=== PATIENT | female | born 1980 | race Caucasian/White ===

== ENCOUNTER 2016-09-17 22:20 | Emergency (ER) | payer BC, MEDICAID, SELFPAY ==
[~2016-09-17] VITALS: Ht 157.5 cm; Wt 64.6 kg
[2016-09-17] MEDS ORDERED: BIRTH CONTROL (22:38)
[2016-09-17] MEDS ORDERED: HTN MED (22:39)
[2016-09-17 22:56] LABS: HEMOGLOBIN 15.5 g/dL (11.7-16.4)
[2016-09-17 23:09] LABS: BLOOD UREA NITROGEN 19 mg/dL (7-18)
[2016-09-17 23:15] LABS: ICTOTEST NEGATIVE
[2016-09-18 01:37] VITALS: BP 116/75
== END 2016-09-18 01:45 | disposition home or self-care (01) ==
LOC: ED 23:35
DX: N20.1 Calculus of ureter (principal); R31.9 Hematuria, unspecified; I10 Essential (primary) hypertension
CPT/HCPCS: 36415; 74176; 80048; 81001; 82040; 84703; 85025; 87086

== ENCOUNTER 2017-05-11 20:08 | Emergency (ER) | payer BC ==
[~2017-05-11] VITALS: Ht 157.5 cm; Wt 73.5 kg
[~2017-05-11 20:08] MED LIST: BIRTH CONTROL; HTN MED
[2017-05-11 20:12] VITALS: BP 118/78
[2017-05-11] MEDS ORDERED: ONDANSETRON ODT 8 MG ONE (20:41)
== END 2017-05-11 20:59 ==
LOC: ED 20:47
DX: S93.491A Sprain of other ligament of right ankle, initial encounter (principal); I10 Essential (primary) hypertension; X50.1XXA Overexertion from prolonged static or awkward postures, initial encounter; Y93.89 Activity, other specified; Y92.009 Unspecified place in unspecified non-institutional (private) residence as the place of occurrence of the external cause; Y99.8 Other external cause status
CPT/HCPCS: 99284

== ENCOUNTER 2018-08-04 08:13 | Emergency (ER) | payer BC ==
[~2018-08-04] VITALS: Ht 157.5 cm; Wt 79.1 kg
[2018-08-04] MEDS ORDERED: ONDANSETRON 2MG/ML, 2ML ONE (08:47)
[2018-08-04] MEDS ORDERED: MORPHINE SULFATE 4 MG/ML, 1ML ONE (08:47)
[2018-08-04] MEDS ORDERED: SODIUM CHLORIDE FLUSH 10ML SYR IVF ONE (09:00)
[2018-08-04] MEDS ORDERED: MORPHINE SULFATE 4 MG/ML, 1ML IVPush PRN (09:00)
[2018-08-04] MEDS ORDERED: ONDANSETRON 2MG/ML, 2ML IVPush ONE (09:00)
[2018-08-04] MEDS ORDERED: LOSA1TAB19 PO (09:02)
[2018-08-04] MEDS ORDERED: CETI10CA PO (09:02)
[2018-08-04 09:03] LABS: BASOPHILS # (AUTO) 0.03 x10^3/uL (0-0.1); BASOPHILS % (AUTO) 0 % (0-1); EOSINOPHILS # (AUTO) 0.13 x10^3/uL (0-0.4); EOSINOPHILS % (AUTO) 1 % (1-7); LYMPHOCYTES # (AUTO) 2.01 x10^3/uL (1-3.4); LYMPHOCYTES % (AUTO) 18 % (22-44); MD NO; MEAN CORPUSCULAR HGB CONC 32.9 g/dL (32.4-35.8); MEAN PLATELET VOLUME 7.9 fL (7.4-10.4); MONOCYTES # (AUTO) 0.65 x10^3/uL (0.2-0.8); MONOCYTES % (AUTO) 6 % (2-9); NEUTROPHILS # (AUTO) 8.17 x10^3/uL (1.8-6.8); NEUTROPHILS % (AUTO) 74 % (42-75); PLATELET COUNT 388 x10^3/uL (130-400); RED BLOOD COUNT 4.92 x10^6/uL (3.82-5.3); RED CELL DISTRIBUTION WIDTH 13.5 % (9.6-15.2)
[2018-08-04] MEDS ORDERED: KETOROLAC 30 MG/1 ML ONE (09:05)
[2018-08-04 09:15] LABS: ALANINE AMINOTRANSFERASE 57 U/L (12-78); ALBUMIN 3.6 g/dL (3.4-5.0); ANION GAP 9 mmol/L (5-15); CALCIUM 9.2 mg/dL (8.5-10.1); CHLORIDE 107 mmol/L (98-107)
[2018-08-04 09:18] LABS: ALKALINE PHOSPHATASE 69 U/L (45-117); BILIRUBIN,TOTAL 0.5 mg/dL (0.2-1.0); CREATININE 0.98 mg/dL (0.55-1.02); TOTAL PROTEIN 7.8 g/dL (6.4-8.2)
[2018-08-04 09:30] LABS: MICROSCOPIC INDICATED
[2018-08-04] MEDS ORDERED: KETOROLAC 30 MG/1 ML IVPush ONE (09:30)
[2018-08-04 09:31] LABS: CULTURE INDICATED? YES
--- NOTE | 2018-08-04 10:01 | NUR ---
PT RETURNS FROM CT. STATES PAIN DOWN TO 5/10 POST MEDS. DENIES NAUSEA. PROVIDER IN TO DISCUSS RESULTS.
--- NOTE | 2018-08-04 10:10 | NUR ---
PT CLEARED FOR DISCHARGE. IV DC'D, PT ALLOWED TO DRESS WHILE AWAITING D/C INSTRUCTIONS.
--- NOTE | 2018-08-04 10:36 | NUR ---
FIRST CONTACT. PT. WAS GIVEN DISCHARGE INSTRUCTIONS AND SCRIPTS WITH UNDERSTANDING VERBALIZED ALONG WITH WILLINGNESS TO COMPLY. PT. WAS AMBULATORY TO THE DISCHARGE DESK.
[2018-08-04 10:37] VITALS: BP 122/82
== END 2018-08-04 10:40 | disposition home or self-care (01) ==
LOC: ED 09:05
DX: K80.20 Calculus of gallbladder without cholecystitis without obstruction (principal); N13.2 Hydronephrosis with renal and ureteral calculous obstruction; I10 Essential (primary) hypertension; Z87.42 Personal history of other diseases of the female genital tract; Z98.890 Other specified postprocedural states
CPT/HCPCS: 36415; 74176; 80053; 81001; 85025; 87086; 96374; 96375; 99284; J1885; J2405

== ENCOUNTER 2019-10-28 09:01 | Emergency (ER) | payer BC ==
[~2019-10-28] VITALS: Ht 157.5 cm; Wt 87.8 kg
[~2019-10-28 09:01] MED LIST changes: +CETI10CA PO; +LOSA1TAB19 PO
--- NOTE | 2019-10-28 09:16 | NUR ---
TASK RN: PT PRESENTED TO ED D/T LEFT SIDED FLANK PAIN. HX OF KIDNEY STONES. DENIES FEVERS/CHILLS. DENIES PAINFUL URINATION. +URGENCY.
[2019-10-28] MEDS ORDERED: SPIR50TA4 PO (09:19)
[2019-10-28] MEDS ORDERED: MONT10TA6 PO (09:19)
[2019-10-28] MEDS ORDERED: VALS1TAB22 PO (09:19)
[2019-10-28] MEDS ORDERED: BECL10.62 INH (09:19)
[2019-10-28] MEDS ORDERED: SODIUM CHLORIDE 0.9% 1,000ML IV ONE (10:00)
[2019-10-28] MEDS ORDERED: SODIUM CHLORIDE FLUSH 10ML SYR IVF ONE (10:00)
[2019-10-28 10:08] LABS: BASOPHILS # (AUTO) 0.05 x10^3/uL (0-0.1); BASOPHILS % (AUTO) 0 % (0-1); EOSINOPHILS # (AUTO) 0.05 x10^3/uL (0-0.4); EOSINOPHILS % (AUTO) 0 % (1-7); LYMPHOCYTES # (AUTO) 1.32 x10^3/uL (1-3.4); LYMPHOCYTES % (AUTO) 10 % (22-44); MD NO; MEAN CORPUSCULAR HEMOGLOBIN 32.1 pg (27.0-34.8); MEAN CORPUSCULAR HGB CONC 33.6 g/dL (32.4-35.8); MEAN CORPUSCULAR VOLUME 95.7 fL (80-100); MEAN PLATELET VOLUME 7.7 fL (7.4-10.4); MONOCYTES % (AUTO) 5 % (2-9); NEUTROPHILS # (AUTO) 11.63 x10^3/uL (1.8-6.8); NEUTROPHILS % (AUTO) 85 % (42-75); PLATELET COUNT 402 x10^3/uL (130-400); RED BLOOD COUNT 4.57 x10^6/uL (3.82-5.3); RED CELL DISTRIBUTION WIDTH 13.4 % (9.6-15.2)
[2019-10-28 10:14] LABS: CULTURE INDICATED? YES; MICROSCOPIC INDICATED
[2019-10-28 10:19] LABS: ALANINE AMINOTRANSFERASE 62 U/L (12-78); ALBUMIN 3.7 g/dL (3.4-5.0); ANION GAP 6 mmol/L (5-15); CALCIUM 8.9 mg/dL (8.5-10.1); CHLORIDE 106 mmol/L (98-107); CREATININE 0.96 mg/dL (0.55-1.02)
[2019-10-28 10:21] LABS: ALKALINE PHOSPHATASE 66 U/L (45-117); BILIRUBIN,TOTAL 0.5 mg/dL (0.2-1.0); TOTAL PROTEIN 7.7 g/dL (6.4-8.2)
--- NOTE | 2019-10-28 10:30 | NUR ---
PT RESTING IN BED.
--- NOTE | 2019-10-28 12:04 | NUR ---
PT RESTING IN BED, CALL LIGHT IN REACH.
[2019-10-28 12:06] VITALS: BP 109/73
--- NOTE | 2019-10-28 13:38 | NUR ---
discharge instructions reviewed
== END 2019-10-28 13:41 | disposition home or self-care (01) ==
LOC: ED 09:25
DX: N20.1 Calculus of ureter (principal); R10.9 Unspecified abdominal pain; I10 Essential (primary) hypertension; Z87.891 Personal history of nicotine dependence
CPT/HCPCS: 36415; 74176; 80053; 81001; 85025; 87086; 99284; J7030